=== PATIENT | female | born 1930 | race Caucasian/White ===

== ENCOUNTER 2017-03-27 18:16 | Emergency (ER) | payer MEDICARE, OTHER ==
[2017-03-27 20:37] LABS: HEMOGLOBIN 11.6 gm/dl (12.3-15.3); RED BLOOD COUNT 3.96 M/UL (4.00-5.10); WHITE BLOOD COUNT 8.4 K/UL (4.5-11.0)
[2017-03-27 20:54] LABS: BUN/CREATININE RATIO 20 (0-10)
[2017-07-27] MEDS ORDERED: CITALOPRAM10 MG/5 ML PO (07:17)
[2017-07-27] MEDS ORDERED: VASOTEC5 MG PO (07:18)
[2017-07-27] MEDS ORDERED: KEPPRA 500 MG500 MG PO (07:19)
[2017-07-27] MEDS ORDERED: ASPIR 8181 MG PO (07:19)
[2017-07-27] MEDS ORDERED: LOPRESSOR 25 MG25 MG PO (07:19)
[2017-07-27] MEDS ORDERED: VITAMIN D31000 UNIT PO (07:20)
[2017-07-27] MEDS ORDERED: MIRALAX17 GM PO (07:21)
[2017-07-27] MEDS ORDERED: VITAMIN B-1000 MCG/M IM (07:21)
[2017-07-27] MEDS ORDERED: PROAIR HFA8.5 GM INH (07:22)
[2017-07-27] MEDS ORDERED: CIPRO500 MG PO (07:23)
[2017-07-27] MEDS ORDERED: NEXIUM40 MG PO (07:28)
[2017-08-02] MEDS ORDERED: ELIQUIS2.5 MG PO (00:34)
[2017-08-02] MEDS ORDERED: HYDROCODON-ACE1 EAC4 PO (00:36)
[2017-08-02] MEDS ORDERED: COLACE 100MG C100 MG PO (00:39)
[2017-08-02] MEDS ORDERED: VASOTEC10 MG PO (00:40)
== END 2017-03-28 00:06 | disposition home or self-care (01) ==
LOC: ER1 18:16
PROVIDERS: Family Medicine
DX: R53.1 Weakness (principal); R53.83 Other fatigue; J44.9 Chronic obstructive pulmonary disease, unspecified; R16.0 Hepatomegaly, not elsewhere classified; Z79.82 Long term (current) use of aspirin; Z79.899 Other long term (current) drug therapy
CPT/HCPCS: 36415; 70450; 71010; 80053; 80307; 81001; 82150; 82550; 83690; 84443; 85025; 87086; 93005; 96360; 99285; Q9962

== ENCOUNTER 2017-04-02 09:28 | Emergency (ER) | payer MEDICARE, OTHER ==
[2017-04-02 10:23] LABS: HEMOGLOBIN 11.8 gm/dl (12.3-15.3); RED BLOOD COUNT 3.96 M/UL (4.00-5.10); WHITE BLOOD COUNT 6.7 K/UL (4.5-11.0)
[2017-04-02 10:45] LABS: BUN/CREATININE RATIO 13 (0-10)
[2017-07-27] MEDS ORDERED: CITALOPRAM10 MG/5 ML PO (07:17)
[2017-07-27] MEDS ORDERED: VASOTEC5 MG PO (07:18)
[2017-07-27] MEDS ORDERED: LOPRESSOR 25 MG25 MG PO (07:19)
[2017-07-27] MEDS ORDERED: ASPIR 8181 MG PO (07:19)
[2017-07-27] MEDS ORDERED: KEPPRA 500 MG500 MG PO (07:19)
[2017-07-27] MEDS ORDERED: VITAMIN D31000 UNIT PO (07:20)
[2017-07-27] MEDS ORDERED: MIRALAX17 GM PO (07:21)
[2017-07-27] MEDS ORDERED: VITAMIN B-1000 MCG/M IM (07:21)
[2017-07-27] MEDS ORDERED: PROAIR HFA8.5 GM INH (07:22)
[2017-07-27] MEDS ORDERED: CIPRO500 MG PO (07:23)
[2017-07-27] MEDS ORDERED: NEXIUM40 MG PO (07:28)
[2017-08-02] MEDS ORDERED: ELIQUIS2.5 MG PO (00:34)
[2017-08-02] MEDS ORDERED: HYDROCODON-ACE1 EAC4 PO (00:36)
[2017-08-02] MEDS ORDERED: COLACE 100MG C100 MG PO (00:39)
[2017-08-02] MEDS ORDERED: VASOTEC10 MG PO (00:40)
== END 2017-04-02 12:45 | disposition home or self-care (01) ==
LOC: ER1 09:28
PROVIDERS: Physician Assistant
DX: N39.0 Urinary tract infection, site not specified (principal); I10 Essential (primary) hypertension; J44.9 Chronic obstructive pulmonary disease, unspecified; J45.909 Unspecified asthma, uncomplicated
CPT/HCPCS: 36415; 71010; 80053; 81001; 82550; 82553; 83605; 83690; 83874; 84484; 85025; 87040; 93005; 96361; 96374; 96375; 99284; J2270; J2405; J7030